=== PATIENT | male | born 1960 | race Caucasian/White ===

== ENCOUNTER 2023-09-11 17:31 | Inpatient (IN) | payer OTHER, MEDICAID ==
[~2023-09-11] VITALS: Ht 162.6 cm; Wt 65.8 kg
[2023-09-11 17:35] VITALS: PULSE 84; RESP 23
[2023-09-11] MEDS ORDERED: NOREPINEPHRINE 8MG/250ML PMX 250 ML IV STA (17:57)
[2023-09-11] MEDS ORDERED: VANCOMYCIN 1G PREMIX 200 ML IV ONE (18:00)
[2023-09-11] MEDS ORDERED: SODIUM CHLORIDE 0.9% 1000ML BAG (SEPSIS BOLUS) IV ONE ×2 (18:00)
[2023-09-11 18:17] LABS: HEMATOCRIT. 34.7 % (42.0-52.0); HEMOGLOBIN. 11.3 g/dL (14.0-18.0); MEAN CORPUSCULAR HEMOGLOBIN 30.6 pg (28.0-32.0); MEAN CORPUSCULAR HGB CONC 32.7 g/dL (31.0-37.0); MEAN CORPUSCULAR VOLUME 93.6 fL (80.0-94.0); MEAN PLATELET VOLUME 11.6 fl (7.4-10.4); PLATELET 196 x1000/uL (130-400); RED CELL DISTRIBUTION WIDTH 16.3 % (11.6-14.6); WHITE BLOOD COUNT 14.3 x1000/uL (4.5-11.0)
[2023-09-11 18:18] LABS: BG CARBOXYHEMOGLOBIN 0.3 % (0.5-1.5); BG DEOXYHEMOGLOBIN 0.9 % (0.0-5.0); BG HCO3 ACT 24.3 mmol/L (22.0-26.0); BG METHEMOGLOBIN 0.2 % (0.0-1.5); BG OXYGEN SATURATION 99.1 % (92.0-98.5); BG OXYHEMOGLOBIN 98.6 % (94.0-97.0); BG PCO2 33.7 mmHg (35.0-45.0); BG PH 7.475 (7.350-7.450); BG PO2 146.1 mmHg (75.0-100.0); BG SAMPLE SITE RIGHT RADIAL; BG TOTAL HEMOGLOBIN 10.6 g/dL (12.0-18.0); BG VENT MODE VENT - AC
[2023-09-11 18:19] LABS: DIFFERENTIAL COMMENT 1
[2023-09-11 18:41] LABS: CHLORIDE 99 mEq/L (98-107); INDEX HEMOLYSI 4 (1-3); INDEX ICTERIC 1 (1-4); INDEX LIPEMIC 1 (1-3); SODIUM 134 mEq/L (136-145)
[2023-09-11 18:46] LABS: POTASSIUM 5.5 mEq/L (3.5-5.1)
[2023-09-11 18:50] LABS: ALANINE AMINOTRANSFERASE 30 IU/L (13-61); ALBUMIN 2.7 g/dL (3.4-5.0); ASPARTATE AMINOTRANSFERASE 44 IU/L (15-37); BILIRUBIN TOTAL 0.4 mg/dL (0.1-1.0); CARBON DIOXIDE 24 mEq/L (21-32); GLUCOSE 234 mg/dL (70-105); PROTEIN TOTAL 7.3 g/dL (6.0-8.3); TROPONIN I HIGH SENSITIVITY 21 ng/L (<78); UREA NITROGEN BLOOD 41 mg/dL (7-21)
[2023-09-11 19:16] LABS: PLATELET ESTIMATE NORMAL
[2023-09-11] MEDS ORDERED: FUROSEMIDE 100MG/10ML VIAL IV STA (19:48)
[2023-09-11] MEDS ORDERED: ALBUTEROL (0.083%) 2.5MG/3ML NEB HHN ONE (20:00)
[2023-09-11] MEDS ORDERED: DEXTROSE 50% WATER 50ML SYRINGE IV ONE (20:00)
[2023-09-11] MEDS ORDERED: SODIUM BICARBONATE 8.4% 1 MEQ/ML 50ML SYR IV ONE (20:00)
[2023-09-11] MEDS ORDERED: INSULIN REGULAR (HUMULIN R) 300UNITS/3ML VIAL IV ONE (20:00)
[2023-09-11] MEDS ORDERED: SODIUM POLYSTYRENE SULFONATE 15 G/60 ML BOT PO ONE (20:00)
[2023-09-11] MEDS ORDERED: CALCIUM CHLORIDE 1GM/10ML SYR IV ONE (20:00)
[2023-09-11 20:31] LABS: INR 1.1; PROTHROMBIN TIME 11.7 sec (9.6-11.0)
[2023-09-11 20:37] LABS: TROPONIN I HIGH SENSITIVITY 60 ng/L (<78)
[2023-09-11 20:39] LABS: LACTIC ACID 4.8 mmol/L (0.4-2.0)
[2023-09-11 20:47] VITALS: PULSE 87; RESP 20
[2023-09-11] MEDS ORDERED: FUROSEMIDE 40MG/4ML VIAL IV NR (21:45)
[2023-09-11 22:14] LABS: TROPONIN I HIGH SENSITIVITY 60 ng/L (<78)
[2023-09-11 22:22] VITALS: RESP 22
[2023-09-11] MEDS ORDERED: DEXT 5%/0.9% NACL 1,000 ML IV ONE (22:30)
[2023-09-11] MEDS ORDERED: ENOXAPARIN 40MG/0.4ML SYR SUBCUT SCH (22:30)
[2023-09-11] MEDS ORDERED: ALBUTEROL (0.5%) 2.5MG/0.5ML NEB HHN ONE (23:49)
[2023-09-12] VITALS (53 sets, daily range): BP systolic 89–156; BP diastolic 52–121; PULSE 78–105; RESP 13–25; TEMP 97.8–100.2
[2023-09-12] MEDS ORDERED: DEXTROSE 50% WATER 50ML SYRINGE IV PRN (00:15)
[2023-09-12 01:58] LABS: CLARITY URINE CLOUDY (CLEAR); COLOR URINE YELLOW (YELLOW); GLUCOSE URINE NEGATIVE (NEGATIVE); KETONES URINE NEGATIVE (NEGATIVE); LEUKOCYTE ESTERASE URINE NEGATIVE (NEGATIVE); NITRITE URINE NEGATIVE (NEGATIVE); OCCULT BLOOD URINE 1+ (NEGATIVE); PH URINE 6.5 (4.5-8.0); PROTEIN URINE TRACE (NEGATIVE); SPECIFIC GRAVITY URINE 1.007 (1.005-1.030); UROBILINOGEN URINE 0.2 E.U./dL (0.2-1.0)
[2023-09-12 02:00] LABS: BACTERIA URINE NONE SEEN
[2023-09-12 05:33] LABS: SQUAMOUS EPITHELIAL CELL URINE FEW /lpf (RARE/1+)
[2023-09-12 05:37] LABS: YEAST URINE 1+
[2023-09-12] MEDS ORDERED: VANCOMYCIN 750MG PREMIX 150 ML IV SCH (06:00)
[2023-09-12] MEDS ORDERED: PIPERACILLIN/TAZOBACTAM 3.375 G in DEXTROSE 5% WATER 50 ML IV SCH (06:00)
[2023-09-12] MEDS: BLOOD SUGAR DIAGNOSTIC STRIP TEST SCH ×3 (09:00→17:34)
[2023-09-12 09:15] LABS: BG BASE EXCESS 3.7 mmol/L (-2.0-2.0); BG CARBOXYHEMOGLOBIN 0.3 % (0.5-1.5); BG DEOXYHEMOGLOBIN 1.5 % (0.0-5.0); BG FRACTION INSPIRED OXYGEN 60; BG HCO3 ACT 26.1 mmol/L (22.0-26.0); BG METHEMOGLOBIN 0.2 % (0.0-1.5); BG OXYGEN SATURATION 98.5 % (92.0-98.5); BG PCO2 32.3 mmHg (35.0-45.0); BG PH 7.525 (7.350-7.450); BG PO2 105.8 mmHg (75.0-100.0); BG SAMPLE SITE RIGHT RADIAL; BG VENT MODE VENT - AC
[2023-09-12] MEDS: PIPERACILLIN/TAZOBACTAM 3.375 G in DEXTROSE 5% WATER 50 ML IV SCH ×3 (10:12→22:23)
[2023-09-12] MEDS: VANCOMYCIN 750MG PREMIX 150 ML IV SCH ×2 (10:12→21:09)
[2023-09-12] MEDS: INSULIN LISPRO 100 UNITS/ML SUBCUT SCH ×3 (10:15→17:45)
[2023-09-12] MEDS: PANTOPRAZOLE SODIUM 40 MG/VIAL IV SCH (10:20)
[2023-09-12] MEDS: LOSARTAN 50 MG TABLET PO SCH (10:20)
[2023-09-12] MEDS: INSULIN GLARGINE 100 UNITS/ML SUBCUT SCH (10:22)
[2023-09-12] MEDS: EMTRICITABINE 200MG CAPSULE PO SCH (11:11)
[2023-09-12] MEDS: TENOFOVIR 300MG TABLET PO SCH (11:11)
[2023-09-12 12:40] LABS: BASOPHILS % 0.3 % (0.0-2.0); EOSINOPHILS % 0.5 % (0.0-5.0); HEMATOCRIT. 32.6 % (42.0-52.0); HEMOGLOBIN. 10.7 g/dL (14.0-18.0); LYMPHOCYTES % 11.5 % (20.0-50.0); MEAN CORPUSCULAR HEMOGLOBIN 30.1 pg (28.0-32.0); MEAN CORPUSCULAR HGB CONC 32.9 g/dL (31.0-37.0); MEAN CORPUSCULAR VOLUME 91.6 fL (80.0-94.0); MEAN PLATELET VOLUME 11.1 fl (7.4-10.4); MONOCYTES % 6.8 % (2.0-8.0); NEUTROPHILS % 80.9 % (40.0-76.0); PLATELET 182 x1000/uL (130-400); RED BLOOD CELL COUNT 3.56 mill/uL (4.7-6.1); RED CELL DISTRIBUTION WIDTH 16.4 % (11.6-14.6); WHITE BLOOD COUNT 12.1 x1000/uL (4.5-11.0)
[2023-09-12 13:07] LABS: CHLORIDE 103 mEq/L (98-107); INDEX HEMOLYSI 1 (1-3); INDEX ICTERIC 1 (1-4); INDEX LIPEMIC 1 (1-3); POTASSIUM 2.9 mEq/L (3.5-5.1); SODIUM 137 mEq/L (136-145)
[2023-09-12 13:18] LABS: CALCIUM 9.6 mg/dL (8.5-10.1); CARBON DIOXIDE 27 mEq/L (21-32); CREATININE 0.9 mg/dL (0.6-1.3); GLUCOSE 147 mg/dL (70-105); PHOSPHORUS 1.4 mg/dL (2.5-4.9); UREA NITROGEN BLOOD 34 mg/dL (7-21)
[2023-09-12] MEDS: IPRATROPIUM/ALBUTEROL 0.5-3(2.5)MG/3ML NEB HHN SCH ×2 (15:59→21:15)
[2023-09-12] MEDS ORDERED: DIATR MEGLU/DIATRIZOATE SOLN 30ML ONE (16:16)
[2023-09-12] MEDS: POTASSIUM-SODIUM PHOSPHATE POWDER PACKET PO SCH (17:14)
[2023-09-12] MEDS: RIVAROXABAN 10 MG TABLET PO SCH (17:14)
[2023-09-12] MEDS ORDERED: POTASSIUM CHLORIDE INJ 40 MEQ in DEXT 5% WATER 500 ML IV NR (17:30)
[2023-09-13] VITALS (92 sets, daily range): BP systolic 97–201; BP diastolic 51–136; PULSE 81–152; RESP 14–32; TEMP 97.8–98.6
[2023-09-13] MEDS: BLOOD SUGAR DIAGNOSTIC STRIP TEST SCH ×4 (00:20→17:41)
[2023-09-13] MEDS: IPRATROPIUM/ALBUTEROL 0.5-3(2.5)MG/3ML NEB HHN SCH ×4 (01:44→20:07)
[2023-09-13 05:54] LABS: CHLORIDE 103 mEq/L (98-107); INDEX HEMOLYSI 1 (1-3); INDEX ICTERIC 1 (1-4); INDEX LIPEMIC 1 (1-3); POTASSIUM 3.4 mEq/L (3.5-5.1); SODIUM 137 mEq/L (136-145)
[2023-09-13 05:56] LABS: CALCIUM 9.5 mg/dL (8.5-10.1)
[2023-09-13] MEDS: INSULIN LISPRO 100 UNITS/ML SUBCUT SCH ×4 (06:00→17:41)
[2023-09-13 06:01] LABS: CARBON DIOXIDE 28 mEq/L (21-32); CREATININE 0.8 mg/dL (0.6-1.3); GLUCOSE 124 mg/dL (70-105); UREA NITROGEN BLOOD 29 mg/dL (7-21)
[2023-09-13 06:02] LABS: BASOPHILS % 0.1 % (0.0-2.0); EOSINOPHILS % 0.1 % (0.0-5.0); HEMATOCRIT. 33.7 % (42.0-52.0); HEMOGLOBIN. 11.1 g/dL (14.0-18.0); MEAN CORPUSCULAR HGB CONC 32.9 g/dL (31.0-37.0); MEAN CORPUSCULAR VOLUME 91.2 fL (80.0-94.0); MEAN PLATELET VOLUME 10.8 fl (7.4-10.4); MONOCYTES % 6.1 % (2.0-8.0); NEUTROPHILS % 85.7 % (40.0-76.0); PLATELET 196 x1000/uL (130-400); RED CELL DISTRIBUTION WIDTH 16.3 % (11.6-14.6); WHITE BLOOD COUNT 21.4 x1000/uL (4.5-11.0)
[2023-09-13] MEDS: PIPERACILLIN/TAZOBACTAM 3.375 G in DEXTROSE 5% WATER 50 ML IV SCH ×3 (06:09→21:37)
[2023-09-13] MEDS ORDERED: HYDRALAZINE 20MG/ML VIAL IV NR (07:18)
[2023-09-13] MEDS ORDERED: HYDRALAZINE 10 MG in SODIUM CHLORIDE 0.9% 49.5 ML IV PRN (07:30)
[2023-09-13] MEDS ORDERED: LABETALOL 5MG/ML SYR 20 MG/4 ML SYRINGE IV SCH (07:45)
[2023-09-13] MEDS ORDERED: MORPHINE SULFATE 2 MG/ML CPJ (NOT FOR IM USE) IV PRN (07:45)
[2023-09-13] MEDS ORDERED: POTASSIUM CHLORIDE 20MEQ TABLET SR PO NR (08:00)
[2023-09-13] MEDS ORDERED: LIDOCAINE HCL 1% 10 MG/ML 10ML VIAL ONE (09:00)
[2023-09-13] MEDS: POTASSIUM-SODIUM PHOSPHATE POWDER PACKET PO SCH ×2 (09:01→17:41)
[2023-09-13] MEDS: TENOFOVIR 300MG TABLET PO SCH (09:01)
[2023-09-13] MEDS: EMTRICITABINE 200MG CAPSULE PO SCH (09:01)
[2023-09-13] MEDS: LOSARTAN 50 MG TABLET PO SCH (09:01)
[2023-09-13] MEDS: INSULIN GLARGINE 100 UNITS/ML SUBCUT SCH (09:02)
[2023-09-13 10:00] LABS: CHLORIDE 105 mEq/L (98-107); INDEX HEMOLYSI 1 (1-3); INDEX ICTERIC 1 (1-4); INDEX LIPEMIC 1 (1-3); POTASSIUM 3.5 mEq/L (3.5-5.1); SODIUM 138 mEq/L (136-145)
[2023-09-13] MEDS ORDERED: DILTIAZEM HCL 125 MG in DEXT 5% WATER 100 ML IV PRN (10:00)
[2023-09-13 10:04] LABS: CARBON DIOXIDE 27 mEq/L (21-32); CREATININE 0.9 mg/dL (0.6-1.3); GLUCOSE 127 mg/dL (70-105); PHOSPHORUS 1.8 mg/dL (2.5-4.9); UREA NITROGEN BLOOD 28 mg/dL (7-21)
[2023-09-13 10:09] LABS: TROPONIN I HIGH SENSITIVITY 37 ng/L (<78)
[2023-09-13] MEDS ORDERED: DILTIAZEM HCL 125 MG in DEXT 5% WATER 100 ML IV SCH (10:15)
[2023-09-13] MEDS ORDERED: POTASSIUM-SODIUM PHOSPHATE POWDER PACKET PO ONE (10:15)
[2023-09-13] MEDS: PANTOPRAZOLE SODIUM 40 MG/VIAL IV SCH (12:15)
[2023-09-13] MEDS ORDERED: HYDRALAZINE 20MG/ML VIAL IV PRN (16:23)
[2023-09-13] MEDS: AMLODIPINE 10MG TABLET NG SCH (17:00)
[2023-09-13] MEDS: RIVAROXABAN 10 MG TABLET PO SCH (17:41)
[2023-09-13] MEDS: ZINC SULFATE 220 MG ( 50 ) CAPSULE PO SCH (17:41)
[2023-09-14] VITALS (48 sets, daily range): BP systolic 91–125; BP diastolic 53–82; PULSE 10–118; RESP 14–21; TEMP 98.1–100
[2023-09-14] MEDS ORDERED: VANCOMYCIN 750MG PREMIX 150 ML IV SCH
[2023-09-14] MEDS: BLOOD SUGAR DIAGNOSTIC STRIP TEST SCH ×5 (00:02→23:46)
[2023-09-14] MEDS: IPRATROPIUM/ALBUTEROL 0.5-3(2.5)MG/3ML NEB HHN SCH ×4 (02:51→20:44)
[2023-09-14] MEDS: INSULIN LISPRO 100 UNITS/ML SUBCUT SCH ×5 (05:42→23:53)
[2023-09-14] MEDS: PIPERACILLIN/TAZOBACTAM 3.375 G in DEXTROSE 5% WATER 50 ML IV SCH ×3 (05:43→20:45)
[2023-09-14 06:02] LABS: BASOPHILS % 0.2 % (0.0-2.0); HEMATOCRIT. 28.8 % (42.0-52.0); HEMOGLOBIN. 9.6 g/dL (14.0-18.0); LYMPHOCYTES % 7.5 % (20.0-50.0); MEAN CORPUSCULAR HEMOGLOBIN 30.3 pg (28.0-32.0); MEAN CORPUSCULAR HGB CONC 33.2 g/dL (31.0-37.0); MEAN CORPUSCULAR VOLUME 91.3 fL (80.0-94.0); MEAN PLATELET VOLUME 10.2 fl (7.4-10.4); MONOCYTES % 5.3 % (2.0-8.0); PLATELET 173 x1000/uL (130-400); RED BLOOD CELL COUNT 3.16 mill/uL (4.7-6.1); RED CELL DISTRIBUTION WIDTH 16.4 % (11.6-14.6); WHITE BLOOD COUNT 18.2 x1000/uL (4.5-11.0)
[2023-09-14 07:43] LABS: CHLORIDE 107 mEq/L (98-107); INDEX HEMOLYSI 1 (1-3); INDEX ICTERIC 1 (1-4); INDEX LIPEMIC 1 (1-3); POTASSIUM 3.7 mEq/L (3.5-5.1); SODIUM 139 mEq/L (136-145)
[2023-09-14 07:49] LABS: CALCIUM 8.8 mg/dL (8.5-10.1); CARBON DIOXIDE 26 mEq/L (21-32); CREATININE 1.2 mg/dL (0.6-1.3); GLUCOSE 154 mg/dL (70-105); PHOSPHORUS 1.9 mg/dL (2.5-4.9); UREA NITROGEN BLOOD 36 mg/dL (7-21)
[2023-09-14] MEDS: TENOFOVIR 300MG TABLET PO SCH (09:00)
[2023-09-14] MEDS: EMTRICITABINE 200MG CAPSULE PO SCH (09:00)
[2023-09-14] MEDS: LOSARTAN 50 MG TABLET PO SCH (09:00)
[2023-09-14] MEDS: AMLODIPINE 10MG TABLET NG SCH (09:00)
[2023-09-14] MEDS: POTASSIUM-SODIUM PHOSPHATE POWDER PACKET PO SCH ×2 (09:00→17:21)
[2023-09-14] MEDS: PANTOPRAZOLE SODIUM 40 MG/VIAL IV SCH (09:00)
[2023-09-14] MEDS: ZINC SULFATE 220 MG ( 50 ) CAPSULE PO SCH (09:00)
[2023-09-14] MEDS: INSULIN GLARGINE 100 UNITS/ML SUBCUT SCH (09:40)
[2023-09-14] MEDS ORDERED: SODIUM PHOS,M-BASIC-D-BASIC 10 MM in DEXT 5% WATER 246.6667 ML IV NR (11:00)
[2023-09-14] MEDS: RIVAROXABAN 10 MG TABLET PO SCH (17:33)
[2023-09-15] VITALS (23 sets, daily range): BP systolic 103–142; BP diastolic 61–93; PULSE 89–120; RESP 13–25; TEMP 98.4–99.9; O2SAT 100
[2023-09-15] MEDS ORDERED: VANCOMYCIN 500MG PREMIX 100 ML IV SCH
[2023-09-15] MEDS: IPRATROPIUM/ALBUTEROL 0.5-3(2.5)MG/3ML NEB HHN SCH ×4 (00:44→21:05)
[2023-09-15] MEDS: ACETYLCYSTEINE 100MG/ML 10% VIAL 4ML INH SCH ×3 (00:45→16:40)
[2023-09-15] MEDS: PIPERACILLIN/TAZOBACTAM 3.375 G in DEXTROSE 5% WATER 50 ML IV SCH ×2 (04:44→17:21)
[2023-09-15] MEDS: BLOOD SUGAR DIAGNOSTIC STRIP TEST SCH ×3 (05:48→17:22)
[2023-09-15] MEDS: INSULIN LISPRO 100 UNITS/ML SUBCUT SCH ×3 (05:49→17:34)
[2023-09-15 06:05] LABS: POTASSIUM 3.9 mEq/L (3.5-5.1)
[2023-09-15 06:19] LABS: CALCIUM 9.6 mg/dL (8.5-10.1)
[2023-09-15] MEDS: TENOFOVIR 300MG TABLET PO SCH (08:47)
[2023-09-15] MEDS: EMTRICITABINE 200MG CAPSULE PO SCH (08:47)
[2023-09-15] MEDS: LOSARTAN 50 MG TABLET PO SCH (08:47)
[2023-09-15] MEDS: PANTOPRAZOLE SODIUM 40 MG/VIAL IV SCH (08:47)
[2023-09-15] MEDS: POTASSIUM-SODIUM PHOSPHATE POWDER PACKET PO SCH ×2 (08:47→17:20)
[2023-09-15] MEDS: AMLODIPINE 10MG TABLET NG SCH (08:48)
[2023-09-15] MEDS: ZINC SULFATE 220 MG ( 50 ) CAPSULE PO SCH (08:48)
[2023-09-15 09:07] LABS: ABSOLUTE LYMPHOCYTES 1.5 x10E3/uL (0.7-3.1); ABSOLUTE MONOCYTES 0.9 x10E3/uL (0.1-0.9); ABSOLUTE NEUTROPHILS 16.3 x10E3/uL (1.4-7.0); BASOPHILS 0 % (Not Estab.); EOSINOPHILS 0 % (Not Estab.); HEMATOCRIT 29.7 % (37.5-51.0); HEMOGLOBIN 9.7 g/dL (13.0-17.7); IMMATURE GRANULOCYTES 1 % (Not Estab.); IMMATURE GRANULOCYTES ABSOLUTE 0.2 x10E3/uL (0.0-0.1); LYMPHOCYTES 8 % (Not Estab.); MEAN CORPUSCULAR HGB CONC. 32.7 g/dL (31.5-35.7); MEAN CORPUSCULAR VOLUME 92 fL (79-97); MONOCYTES 5 % (Not Estab.); NEUTROPHILS 86 % (Not Estab.); PLATELETS 198 x10E3/uL (150-450); RBC 3.23 x10E6/uL (4.14-5.80); RED CELL DISTRIBUTION WIDTH 14.6 % (11.6-15.4); WBC 18.9 x10E3/uL (3.4-10.8)
[2023-09-15] MEDS: INSULIN GLARGINE 100 UNITS/ML SUBCUT SCH (09:49)
[2023-09-15 17:09] LABS: % CD 3 POS. LYMPHOCYTES 80.1 % (57.5-86.2); % CD 4 POS. LYMPHOCYTES 24.8 % (30.8-58.5); % CD 8 POS. LYMPH 57.3 % (12.0-35.5); ABSOLUTE CD 3 1202 /uL (622-2402); ABSOLUTE CD 4 HELPER 372 /uL (359-1519); ABSOLUTE CD 8 SUPPRESSOR 860 /uL (109-897); CD4/CD8 RATIO 0.43 (0.92-3.72)
[2023-09-15] MEDS: RIVAROXABAN 10 MG TABLET PO SCH (17:20)
[2023-09-15] MEDS ORDERED: MEROPENEM 1000MG in NORMAL SALINE 100ML IV SCH (18:00)
== END 2023-09-16 00:05 | disposition short-term general hospital (02) | DRG 974 ==
LOC: ER 17:31 → MICUSO 19:42 → CVICU 09-12 10:09 → 5EST 09-14 08:25
PROVIDERS: ADMIT Internal Medicine; ATTEND Internal Medicine
PROC: 02HV33Z Insertion of Infusion Device into Superior Vena Cava, Percutaneous Approach (ICD-10-PCS; principal; 2023-09-13)
PROC: B548ZZA Ultrasonography of Superior Vena Cava, Guidance (ICD-10-PCS; 2023-09-13)
PROC: 5A1955Z Respiratory Ventilation, Greater than 96 Consecutive Hours (ICD-10-PCS; 2023-09-13)
DX: A41.9 Sepsis, unspecified organism (principal); E43 Unspecified severe protein-calorie malnutrition; B20 Human immunodeficiency virus [HIV] disease; J96.21 Acute and chronic respiratory failure with hypoxia; I46.9 Cardiac arrest, cause unspecified; G92.8 Other toxic encephalopathy; R53.2 Functional quadriplegia; J18.9 Pneumonia, unspecified organism; N17.0 Acute kidney failure with tubular necrosis; Z99.11 Dependence on respirator [ventilator] status; Z43.1 Encounter for attention to gastrostomy; E11.65 Type 2 diabetes mellitus with hyperglycemia; E87.5 Hyperkalemia; I11.9 Hypertensive heart disease without heart failure; L89.90 Pressure ulcer of unspecified site, unspecified stage; I07.1 Rheumatic tricuspid insufficiency; R13.10 Dysphagia, unspecified; B96.1 Klebsiella pneumoniae [K. pneumoniae] as the cause of diseases classified elsewhere; I48.91 Unspecified atrial fibrillation; Z79.899 Other long term (current) drug therapy; Z68.29 Body mass index [BMI] 29.0-29.9, adult; Z74.01 Bed confinement status; Z79.01 Long term (current) use of anticoagulants; Z79.4 Long term (current) use of insulin
CPT/HCPCS: 36415; 36573; 36600; 71045; 71250; 74018; 76770; 80048; 80053; 80202; 81003; 82375; 82805; 82962; 83036; 83605; 83735; 83880; 84100; 84145; 84484; 85025; 85379; 86359; 86360; 87070; 87077; 87186; 93005; 93306; 93970; 94002; 94003; 94640; 99291; A6261; C1725; C9113; J0360; J1650; J1815; J1940; J2185; J2270; J2543; J3370; J3480; J3490; J7030; J7060; J7608; Q9963

== ENCOUNTER 2024-02-21 16:52 | Inpatient (IN) | payer MEDICARE, OTHER, MEDICAID ==
[~2024-02-21] VITALS: Ht 172.7 cm; Wt 692.2 kg
[2024-02-21 17:10] VITALS: PULSE 131; RESP 23
[2024-02-21] MEDS ORDERED: SODIUM CHLORIDE 0.9% 1000ML BAG (SEPSIS BOLUS) IV ONE (17:30)
[2024-02-21] MEDS: PIPERACILLIN/TAZO 3.375G/50ML 50 ML IV NR (18:16)
[2024-02-21] MEDS: VANCOMYCIN 1G PREMIX 200 ML IV NR (18:17)
[2024-02-21 18:25] LABS: BASOPHILS % 0.3 % (0.0-2.0); EOSINOPHILS % 0.7 % (0.0-5.0); HEMATOCRIT. 39.8 % (42.0-52.0); HEMOGLOBIN. 12.9 g/dL (14.0-18.0); LYMPHOCYTES % 8.1 % (20.0-50.0); MEAN CORPUSCULAR HEMOGLOBIN 31.8 pg (28.0-32.0); MEAN CORPUSCULAR HGB CONC 32.5 g/dL (31.0-37.0); MEAN CORPUSCULAR VOLUME 97.7 fL (80.0-94.0); MEAN PLATELET VOLUME 10.1 fl (7.4-10.4); MONOCYTES % 11.7 % (2.0-8.0); NEUTROPHILS % 79.2 % (40.0-76.0); PLATELET 311 x1000/uL (130-400); RED BLOOD CELL COUNT 4.07 mill/uL (4.7-6.1); RED CELL DISTRIBUTION WIDTH 16.8 % (11.6-14.6); WHITE BLOOD COUNT 20.4 x1000/uL (4.5-11.0)
[2024-02-21 18:38] LABS: ALANINE AMINOTRANSFERASE 14 IU/L (10-49); ALBUMIN 3.9 g/dL (3.2-4.8); ASPARTATE AMINOTRANSFERASE 37 IU/L (<34); BILIRUBIN TOTAL 0.3 mg/dL (0.1-1.0); CALCIUM 9.6 mg/dL (8.7-10.4); CARBON DIOXIDE 24 mEq/L (21-32); CHLORIDE 97 mEq/L (98-107); CREATININE 1.5 mg/dL (0.6-1.3); GLUCOSE 237 mg/dL (70-105); PROTEIN TOTAL 8.5 g/dL (6.0-8.3); SODIUM 125 mEq/L (136-145); TROPONIN I HIGH SENSITIVITY 34 ng/L (3.0-53); UREA NITROGEN BLOOD 60 mg/dL (9-23)
[2024-02-21 18:50] LABS: POTASSIUM 7.1 mEq/L (3.5-5.1)
[2024-02-21] MEDS: FUROSEMIDE 40MG/4ML VIAL IV NR (18:55)
[2024-02-21] MEDS: CALCIUM CHLORIDE 1GM/10ML SYR IV NR (19:22)
[2024-02-21] MEDS: DEXTROSE 50% WATER 50ML SYRINGE IV NR (19:22)
[2024-02-21] MEDS: SODIUM BICARBONATE 8.4% 1 MEQ/ML 50ML SYR IV NR (19:23)
[2024-02-21] MEDS: SODIUM CHLORIDE 0.9% 2,100 ML IV SCH (19:23)
[2024-02-21] MEDS: INSULIN REGULAR (HUMULIN R) 300UNITS/3ML VIAL IV NR (19:38)
[2024-02-21] MEDS: LEVOFLOXACIN 750MG PREMIX 150 ML IV ONE (19:39)
[2024-02-21] MEDS: ALBUTEROL (0.083%) 2.5MG/3ML NEB HHN NR (20:46)
[2024-02-21 20:47] VITALS: PULSE 83; RESP 15
[2024-02-21 21:09] LABS: INR 1.1; PROTHROMBIN TIME 11.9 sec (9.6-11.0)
[2024-02-21 21:14] LABS: TROPONIN I HIGH SENSITIVITY 51 ng/L (3.0-53)
[2024-02-21] MEDS ORDERED: DOCUSATE SODIUM 100MG CAPSULE PO PRN (22:15)
[2024-02-21] MEDS ORDERED: ONDANSETRON HCL 4MG/2ML INJ IV PRN (22:15)
[2024-02-21] MEDS ORDERED: IPRATROPIUM/ALBUTEROL 0.5-3(2.5)MG/3ML NEB HHN PRN (22:15)
[2024-02-21] MEDS: BLOOD SUGAR DIAGNOSTIC STRIP TEST SCH (23:00)
[2024-02-21] MEDS: SODIUM CHLORIDE 0.9% 1,000 ML IV SCH (23:01)
[2024-02-22] VITALS (13 sets, daily range): BP systolic 86–139; BP diastolic 63–87; PULSE 88–106; RESP 12–24; TEMP 97–97.9
[2024-02-22] MEDS: IPRATROPIUM/ALBUTEROL 0.5-3(2.5)MG/3ML NEB HHN SCH (00:35)
[2024-02-22] MEDS ORDERED: APIX5TAB PO (00:39)
[2024-02-22] MEDS ORDERED: DARU1TAB PO (00:39)
[2024-02-22] MEDS ORDERED: GLYC1SOL (00:39)
[2024-02-22 02:45] LABS: BG BASE EXCESS -4.8 mmol/L (-2.0-2.0); BG CARBOXYHEMOGLOBIN 0.9 % (0.5-1.5); BG DEOXYHEMOGLOBIN 0.5 % (0.0-5.0); BG FRACTION INSPIRED OXYGEN 40; BG METHEMOGLOBIN 0.3 % (0.0-1.5); BG OXYGEN SATURATION 99.5 % (92.0-98.5); BG OXYHEMOGLOBIN 98.3 % (94.0-97.0); BG PCO2 47.9 mmHg (35.0-45.0); BG PO2 143.3 mmHg (75.0-100.0); BG SAMPLE SITE RIGHT RADIAL; BG TOTAL HEMOGLOBIN 11.7 g/dL (12.0-18.0); BG VENT MODE VENT - AC
[2024-02-22 02:51] LABS: POTASSIUM 5.5 mEq/L (3.5-5.1)
[2024-02-22 05:54] LABS: BASOPHILS % 0.4 % (0.0-2.0); EOSINOPHILS % 0.7 % (0.0-5.0); HEMATOCRIT. 35.3 % (42.0-52.0); HEMOGLOBIN. 11.7 g/dL (14.0-18.0); MEAN CORPUSCULAR VOLUME 97.1 fL (80.0-94.0); MEAN PLATELET VOLUME 9.7 fl (7.4-10.4); MONOCYTES % 11.3 % (2.0-8.0); NEUTROPHILS % 71.6 % (40.0-76.0); PLATELET 194 x1000/uL (130-400); RED BLOOD CELL COUNT 3.64 mill/uL (4.7-6.1); WHITE BLOOD COUNT 7.8 x1000/uL (4.5-11.0)
[2024-02-22 06:17] LABS: ALANINE AMINOTRANSFERASE 10 IU/L (10-49); ALBUMIN 3.3 g/dL (3.2-4.8); ASPARTATE AMINOTRANSFERASE 11 IU/L (<34); BILIRUBIN TOTAL 0.3 mg/dL (0.1-1.0); CALCIUM 9.5 mg/dL (8.7-10.4); CARBON DIOXIDE 24 mEq/L (21-32); CHLORIDE 103 mEq/L (98-107); CHOLESTEROL 93 mg/dL (<200); CREATININE 1.2 mg/dL (0.6-1.3); GLUCOSE 96 mg/dL (70-105); HDL CHOLESTEROL 43 mg/dL (>55); IRON 18 ug/dL (65-175); LDL CHOLESTEROL 34 mg/dL (5-100); PHOSPHORUS 2.3 mg/dL (2.5-4.9); POTASSIUM 5.3 mEq/L (3.5-5.1); PROTEIN TOTAL 7.6 g/dL (6.0-8.3); SODIUM 133 mEq/L (136-145); T4 FREE 1.06 ng/dL (0.89-1.76); THYROID STIMULATING HORMONE 1.03 uIU/mL (0.55-4.78); TOTAL IRON BINDING CAPACITY 265 ug/dl (250-425); TRIGLYCERIDE 36 mg/dL (0-150); UREA NITROGEN BLOOD 61 mg/dL (9-23)
[2024-02-22 07:18] LABS: FERRITIN 428 ng/mL (22-322); FOLIC ACID (FOLATE) SERUM > 20.00 ng/mL (>5.38); VITAMIN B12 SERUM 1696 pg/mL (211-911)
[2024-02-22] MEDS: INSULIN LISPRO 100 UNITS/ML SUBCUT SCH (08:20)
[2024-02-22] MEDS ORDERED: SODIUM POLYSTYRENE SULFONATE 15 G/60 ML BOT PO NR (08:30)
[2024-02-22] MEDS ORDERED: VANCOMYCIN 1GM/200ML PMX (BAXTER) IV SCH ×2 (09:00→13:00)
[2024-02-22] MEDS: BUDESONIDE 0.5MG/2ML NEB HHN SCH (09:00)
[2024-02-22] MEDS: DEXTROSE 50% WATER 50ML SYRINGE IV PRN (09:05)
[2024-02-22 09:56] LABS: PHOSPHORUS 2.6 mg/dL (2.5-4.9)
[2024-02-22] MEDS ORDERED: DEXT IV SCH (10:50)
[2024-02-22] MEDS ORDERED: NACL IV SCH (10:50)
[2024-02-22] MEDS ORDERED: SODIUM CHLORIDE IV SCH (10:50)
[2024-02-22 13:30] LABS: CALCIUM 9.5 mg/dL (8.7-10.4); CARBON DIOXIDE 21 mEq/L (21-32); CHLORIDE 105 mEq/L (98-107); CREATININE 1.1 mg/dL (0.6-1.3); GLUCOSE 106 mg/dL (70-105); POTASSIUM 5.7 mEq/L (3.5-5.1); SODIUM 131 mEq/L (136-145); UREA NITROGEN BLOOD 42 mg/dL (9-23)
[2024-02-22] MEDS ORDERED: MEROPENEM 1G/100ML 100 ML IV SCH (14:00)
[2024-02-22] MEDS ORDERED: VANCOMYCIN 750MG/150ML IV SCH (14:00)
[2024-02-22] MEDS: ACETAMINOPHEN 650MG/20.3ML UDC GT PRN (15:26)
[2024-02-22] MEDS: APIXABAN 5 MG TABLET PO SCH (15:27)
[2024-02-22 16:53] LABS: CALCIUM 9.5 mg/dL (8.7-10.4); CARBON DIOXIDE 21 mEq/L (21-32); CHLORIDE 105 mEq/L (98-107); CREATININE 1.1 mg/dL (0.6-1.3); GLUCOSE 90 mg/dL (70-105); POTASSIUM 5.1 mEq/L (3.5-5.1); SODIUM 134 mEq/L (136-145); UREA NITROGEN BLOOD 48 mg/dL (9-23)
[2024-02-22 20:45] LABS: CALCIUM 9.4 mg/dL (8.7-10.4); CARBON DIOXIDE 21 mEq/L (21-32); CHLORIDE 105 mEq/L (98-107); CREATININE 1.1 mg/dL (0.6-1.3); GLUCOSE 111 mg/dL (70-105); SODIUM 132 mEq/L (136-145); UREA NITROGEN BLOOD 47 mg/dL (9-23)
[2024-02-22 21:24] LABS: HEPATITIS B SURFACE ANTIGEN NEGATIVE (Negative); HEPATITIS C AB NON REACTIVE (Neg) (Negative)
[2024-02-22] MEDS: MEROPENEM 1G/100ML 100 ML IV SCH (22:00)
[2024-02-23] VITALS (23 sets, daily range): BP systolic 98–136; BP diastolic 65–87; PULSE 89–104; RESP 12–13; TEMP 97–98.7
[2024-02-23] MEDS: DEXT 5%/0.9% NACL 1,000 ML IV SCH (00:01)
[2024-02-23 00:47] LABS: CLARITY URINE CLEAR (CLEAR); COLOR URINE YELLOW (YELLOW); GLUCOSE URINE NEGATIVE (NEGATIVE); KETONES URINE NEGATIVE (NEGATIVE); LEUKOCYTE ESTERASE URINE 2+ (NEGATIVE); NITRITE URINE POSITIVE (NEGATIVE); OCCULT BLOOD URINE NEGATIVE (NEGATIVE); PROTEIN URINE TRACE (NEGATIVE); SPECIFIC GRAVITY URINE 1.013 (1.005-1.030); UROBILINOGEN URINE 0.2 E.U./dL (0.2-1.0)
[2024-02-23 01:40] LABS: CREATININE URINE RANDOM 24.1 mg/dL
[2024-02-23 02:20] LABS: SQUAMOUS EPITHELIAL CELL URINE NONE SEEN /lpf (RARE/1+)
[2024-02-23 02:31] LABS: RBC URINE 0-2 /hpf (0-2); WBC URINE 0-2 /hpf (0-2)
[2024-02-23 02:32] LABS: BACTERIA URINE 1+; TRIPLE PHOSPHATE CRYSTAL URINE 1+ /lpf; YEAST URINE 1+
[2024-02-23] MEDS: DOXYCYCLINE 100MG/100ML 100 ML IV SCH (02:46)
[2024-02-23 06:30] LABS: HEMATOCRIT 32.8 % (42.0-52.0); HEMOGLOBIN 10.7 g/dL (14.0-18.0); MEAN CORPUSCULAR HEMOGLOBIN 31.4 pg (28.0-32.0); MEAN CORPUSCULAR HGB CONC 32.6 g/dL (31.0-37.0); MEAN CORPUSCULAR VOLUME 96.2 fL (80.0-94.0); PLATELET 179 x1000/uL (130-400); RED BLOOD CELL COUNT 3.41 mill/uL (4.7-6.1); RED CELL DISTRIBUTION WIDTH 16.7 % (11.6-14.6); WHITE BLOOD COUNT 8.7 x1000/uL (4.5-11.0)
[2024-02-23 07:10] LABS: CALCIUM 9.4 mg/dL (8.7-10.4); CARBON DIOXIDE 22 mEq/L (21-32); CHLORIDE 106 mEq/L (98-107); GLUCOSE 78 mg/dL (70-105); PHOSPHORUS 1.9 mg/dL (2.5-4.9); POTASSIUM 5.1 mEq/L (3.5-5.1); SODIUM 134 mEq/L (136-145); UREA NITROGEN BLOOD 50 mg/dL (9-23)
[2024-02-23] MEDS: PANTOPRAZOLE SODIUM 40 MG/VIAL IV SCH (09:00)
[2024-02-23] MEDS: SODIUM HYPOCHLORITE 0.125% 473ML SOLUTION TOP SCH (16:02)
[2024-02-23] MEDS: SODIUM PHOSPHATE 30 MMOL in DEXT 5% WATER 490 ML IV NR (17:28)
[2024-02-23] MEDS ORDERED: ASCORBIC ACID 500MG/5ML 120ML PO SCH (19:00)
[2024-02-23] MEDS: SODIUM CHLORIDE 0.9% 1,000 ML IV SCH (19:00)
[2024-02-23 19:38] LABS: ALBUMIN 3.3 g/dL (3.2-4.8); PREALBUMIN 16.5 mg/dl (10.0-40.0)
[2024-02-24] VITALS (21 sets, daily range): BP systolic 106–156; BP diastolic 67–83; PULSE 72–104; RESP 10–16; TEMP 97.3–98.3
[2024-02-24] MEDS: ZINC SULFATE 220 MG ( 50 ) CAPSULE PO SCH (00:44)
[2024-02-24 06:11] LABS: HEMATOCRIT 33.8 % (42.0-52.0); HEMOGLOBIN 10.8 g/dL (14.0-18.0); MEAN CORPUSCULAR HEMOGLOBIN 31.1 pg (28.0-32.0); MEAN CORPUSCULAR HGB CONC 31.8 g/dL (31.0-37.0); MEAN CORPUSCULAR VOLUME 97.5 fL (80.0-94.0); PLATELET 182 x1000/uL (130-400); RED BLOOD CELL COUNT 3.46 mill/uL (4.7-6.1); RED CELL DISTRIBUTION WIDTH 17.1 % (11.6-14.6); WHITE BLOOD COUNT 7.2 x1000/uL (4.5-11.0)
[2024-02-24 06:48] LABS: CALCIUM 8.7 mg/dL (8.7-10.4); CARBON DIOXIDE 21 mEq/L (21-32); CHLORIDE 106 mEq/L (98-107); CREATININE 0.8 mg/dL (0.6-1.3); GLUCOSE 110 mg/dL (70-105); PHOSPHORUS 3.6 mg/dL (2.5-4.9); POTASSIUM 4.4 mEq/L (3.5-5.1); SODIUM 136 mEq/L (136-145); UREA NITROGEN BLOOD 38 mg/dL (9-23)
[2024-02-24 06:54] LABS: ABSOLUTE EOSINOPHILS 0.1 x10E3/uL (0.0-0.4); ABSOLUTE LYMPHOCYTES 1.4 x10E3/uL (0.7-3.1); ABSOLUTE MONOCYTES 0.5 x10E3/uL (0.1-0.9); ABSOLUTE NEUTROPHILS 5.9 x10E3/uL (1.4-7.0); BASOPHILS 0 % (Not Estab.); EOSINOPHILS 1 % (Not Estab.); HEMATOCRIT 35.4 % (37.5-51.0); HEMOGLOBIN 11.1 g/dL (13.0-17.7); IMMATURE GRANULOCYTES 0 % (Not Estab.); LYMPHOCYTES 18 % (Not Estab.); MEAN CORPUSCULAR HEMOGLOBIN 30.5 pg (26.6-33.0); MEAN CORPUSCULAR HGB CONC. 31.4 g/dL (31.5-35.7); MEAN CORPUSCULAR VOLUME 97 fL (79-97); MONOCYTES 6 % (Not Estab.); NEUTROPHILS 75 % (Not Estab.); PLATELETS 194 x10E3/uL (150-450); RBC 3.64 x10E6/uL (4.14-5.80); RED CELL DISTRIBUTION WIDTH 13.8 % (11.6-15.4); WBC 7.9 x10E3/uL (3.4-10.8)
[2024-02-24] MEDS: ASCORBIC ACID 500 MG TABLET PO SCH (08:48)
[2024-02-24 09:11] LABS: % CD 3 POS. LYMPHOCYTES 86.3 % (57.5-86.2); % CD 4 POS. LYMPHOCYTES 27.2 % (30.8-58.5); % CD 8 POS. LYMPH 61.9 % (12.0-35.5); ABSOLUTE CD 3 1208 /uL (622-2402); ABSOLUTE CD 4 HELPER 381 /uL (359-1519); ABSOLUTE CD 8 SUPPRESSOR 867 /uL (109-897); CD4/CD8 RATIO 0.44 (0.92-3.72)
[2024-02-24] MEDS ORDERED: VANCOMYCIN 2,000 MG in DEXT 5% WATER 500 ML IV NR (10:00)
[2024-02-24] MEDS: BLOOD SUGAR DIAGNOSTIC STRIP TEST SCH (11:28)
[2024-02-24] MEDS ORDERED: SODIUM CHLORIDE 10% FOR INH 15ML NEB INH NR (16:00)
[2024-02-24] MEDS: SODIUM HYPOCHLORITE 0.125% 473ML SOLUTION TOP SCH (21:45)
[2024-02-25] VITALS (18 sets, daily range): BP systolic 128–157; BP diastolic 74–91; PULSE 80–101; RESP 11–13; TEMP 97.2–98.2
[2024-02-25 07:03] LABS: HEMATOCRIT 29.5 % (42.0-52.0); HEMOGLOBIN 9.6 g/dL (14.0-18.0); MEAN CORPUSCULAR HEMOGLOBIN 30.9 pg (28.0-32.0); MEAN CORPUSCULAR HGB CONC 32.5 g/dL (31.0-37.0); MEAN CORPUSCULAR VOLUME 94.9 fL (80.0-94.0); PLATELET 153 x1000/uL (130-400); RED BLOOD CELL COUNT 3.11 mill/uL (4.7-6.1); RED CELL DISTRIBUTION WIDTH 16.7 % (11.6-14.6); WHITE BLOOD COUNT 6.2 x1000/uL (4.5-11.0)
[2024-02-25 07:36] LABS: CALCIUM 8.7 mg/dL (8.7-10.4); CARBON DIOXIDE 20 mEq/L (21-32); CHLORIDE 102 mEq/L (98-107); CREATININE 0.7 mg/dL (0.6-1.3); GLUCOSE 109 mg/dL (70-105); PHOSPHORUS 1.9 mg/dL (2.5-4.9); POTASSIUM 3.7 mEq/L (3.5-5.1); UREA NITROGEN BLOOD 30 mg/dL (9-23)
[2024-02-25 07:37] LABS: SODIUM 121 mEq/L (136-145)
[2024-02-25] MEDS: POTASSIUM PHOSPHATE 30 MMOL in SODIUM CHLORIDE 0.9% 490 ML IV NR (11:02)
[2024-02-25] MEDS ORDERED: INSU100I28 SQ (14:23)
[2024-02-25] MEDS ORDERED: GLYC2TAB21 PO (14:23)
[2024-02-25] MEDS ORDERED: IPRA3AMP9 HHN (14:24)
[2024-02-26] VITALS (23 sets, daily range): BP systolic 140–157; BP diastolic 75–92; PULSE 72–104; RESP 12–16; TEMP 97.4–98
[2024-02-26 07:44] LABS: CALCIUM 8.1 mg/dL (8.7-10.4); CARBON DIOXIDE 18 mEq/L (21-32); CHLORIDE 112 mEq/L (98-107); CREATININE 0.6 mg/dL (0.6-1.3); GLUCOSE 122 mg/dL (70-105); PHOSPHORUS 2.8 mg/dL (2.5-4.9); POTASSIUM 5.6 mEq/L (3.5-5.1); SODIUM 138 mEq/L (136-145); UREA NITROGEN BLOOD 14 mg/dL (9-23)
[2024-02-26] MEDS: BLOOD SUGAR DIAGNOSTIC STRIP TEST SCH (21:00)
[2024-02-27] VITALS (21 sets, daily range): BP systolic 125–182; BP diastolic 73–103; PULSE 66–85; RESP 12–21; TEMP 97.5–98.1
[2024-02-27] MEDS: CEFTAZIDIME PENTAHYDRATE 2 G in DEXT 5% WATER 100 ML IV SCH (00:10)
[2024-02-27] MEDS: CLONIDINE 0.1MG TABLET PO PRN (01:13)
[2024-02-27 08:08] LABS: BASOPHILS % 0.4 % (0.0-2.0); EOSINOPHILS % 7.5 % (0.0-5.0); HEMATOCRIT. 30.9 % (42.0-52.0); LYMPHOCYTES % 27.7 % (20.0-50.0); MEAN CORPUSCULAR HEMOGLOBIN 30.8 pg (28.0-32.0); MEAN CORPUSCULAR HGB CONC 32.3 g/dL (31.0-37.0); MEAN CORPUSCULAR VOLUME 95.4 fL (80.0-94.0); MEAN PLATELET VOLUME 10.3 fl (7.4-10.4); MONOCYTES % 8.4 % (2.0-8.0); PLATELET 130 x1000/uL (130-400); RED BLOOD CELL COUNT 3.23 mill/uL (4.7-6.1); RED CELL DISTRIBUTION WIDTH 16.5 % (11.6-14.6)
[2024-02-27 08:27] LABS: CALCIUM 8.2 mg/dL (8.7-10.4); CARBON DIOXIDE 20 mEq/L (21-32); CHLORIDE 111 mEq/L (98-107); CREATININE 0.6 mg/dL (0.6-1.3); GLUCOSE 106 mg/dL (70-105); PHOSPHORUS 2.3 mg/dL (2.5-4.9); POTASSIUM 4.7 mEq/L (3.5-5.1); SODIUM 138 mEq/L (136-145); UREA NITROGEN BLOOD 19 mg/dL (9-23)
[2024-02-27 09:43] LABS: SODIUM URINE RANDOM 128 mEq/L
[2024-02-27 10:31] LABS: OSMOLALITY URINE 509 mOsm/kg (500-850)
[2024-02-27] MEDS: AMLODIPINE 5MG TABLET PO SCH (12:43)
[2024-02-27] MEDS: MEROPENEM 1G/100ML 100 ML IV SCH (22:02)
[2024-02-27] MEDS: BLOOD SUGAR DIAGNOSTIC STRIP TEST SCH (23:56)
[2024-02-27] MEDS: INSULIN LISPRO 100 UNITS/ML SUBCUT SCH (23:58)
[2024-02-28] VITALS (21 sets, daily range): BP systolic 112–158; BP diastolic 70–94; PULSE 69–106; RESP 12–18; TEMP 97.4–97.9
[2024-02-28 07:48] LABS: CARBON DIOXIDE 22 mEq/L (21-32); CHLORIDE 107 mEq/L (98-107); CREATININE 0.6 mg/dL (0.6-1.3); GLUCOSE 119 mg/dL (70-105); PHOSPHORUS 1.6 mg/dL (2.5-4.9); POTASSIUM 4.7 mEq/L (3.5-5.1); SODIUM 135 mEq/L (136-145); UREA NITROGEN BLOOD 21 mg/dL (9-23)
[2024-02-28 07:57] LABS: HEMATOCRIT 29.3 % (42.0-52.0); HEMOGLOBIN 9.6 g/dL (14.0-18.0); MEAN CORPUSCULAR HEMOGLOBIN 30.8 pg (28.0-32.0); MEAN CORPUSCULAR HGB CONC 32.6 g/dL (31.0-37.0); MEAN CORPUSCULAR VOLUME 94.5 fL (80.0-94.0); PLATELET 112 x1000/uL (130-400); RED CELL DISTRIBUTION WIDTH 16.2 % (11.6-14.6); WHITE BLOOD COUNT 6.6 x1000/uL (4.5-11.0)
[2024-02-28] MEDS: HYDRALAZINE 20MG/ML VIAL IV PRN (12:28)
[2024-02-29] VITALS (20 sets, daily range): BP systolic 121–165; BP diastolic 72–100; PULSE 76–106; RESP 12–20; TEMP 97–98.3
[2024-02-29 13:07] LABS: BASOPHILS % 0.3 % (0.0-2.0); DIFFERENTIAL COMMENT 0; EOSINOPHILS % 8.2 % (0.0-5.0); HEMATOCRIT. 34.8 % (42.0-52.0); HEMOGLOBIN. 10.9 g/dL (14.0-18.0); LYMPHOCYTES % 22.2 % (20.0-50.0); MEAN CORPUSCULAR HEMOGLOBIN 31.4 pg (28.0-32.0); MEAN CORPUSCULAR HGB CONC 31.2 g/dL (31.0-37.0); MEAN CORPUSCULAR VOLUME 100.4 fL (80.0-94.0); MEAN PLATELET VOLUME 10.5 fl (7.4-10.4); MONOCYTES % 6.4 % (2.0-8.0); NEUTROPHILS % 62.9 % (40.0-76.0); PLATELET 119 x1000/uL (130-400); RED BLOOD CELL COUNT 3.47 mill/uL (4.7-6.1); RED CELL DISTRIBUTION WIDTH 16.7 % (11.6-14.6); WHITE BLOOD COUNT 7.7 x1000/uL (4.5-11.0)
[2024-02-29 13:34] LABS: CALCIUM 8.5 mg/dL (8.7-10.4); CARBON DIOXIDE 20 mEq/L (21-32); CHLORIDE 109 mEq/L (98-107); CREATININE 0.6 mg/dL (0.6-1.3); GLUCOSE 106 mg/dL (70-105); PHOSPHORUS 1.8 mg/dL (2.5-4.9); POTASSIUM 4.8 mEq/L (3.5-5.1); SODIUM 137 mEq/L (136-145); UREA NITROGEN BLOOD 15 mg/dL (9-23)
[2024-02-29] MEDS: IPRATROPIUM/ALBUTEROL 0.5-3(2.5)MG/3ML NEB HHN PRN (16:31)
[2024-02-29] MEDS: IPRATROPIUM/ALBUTEROL 0.5-3(2.5)MG/3ML NEB HHN SCH (20:26)
[2024-03-01] VITALS (18 sets, daily range): BP systolic 109–151; BP diastolic 70–90; PULSE 79–123; RESP 12–23; TEMP 96.4–98
[2024-03-01 06:49] LABS: BASOPHILS % 0.8 % (0.0-2.0); EOSINOPHILS % 8.5 % (0.0-5.0); HEMOGLOBIN. 11.8 g/dL (14.0-18.0); LYMPHOCYTES % 22.8 % (20.0-50.0); MEAN CORPUSCULAR HEMOGLOBIN 30.5 pg (28.0-32.0); MEAN CORPUSCULAR HGB CONC 31.8 g/dL (31.0-37.0); MEAN CORPUSCULAR VOLUME 95.8 fL (80.0-94.0); MEAN PLATELET VOLUME 10.9 fl (7.4-10.4); NEUTROPHILS % 59.9 % (40.0-76.0); PLATELET 120 x1000/uL (130-400); RED BLOOD CELL COUNT 3.86 mill/uL (4.7-6.1); RED CELL DISTRIBUTION WIDTH 16.1 % (11.6-14.6); WHITE BLOOD COUNT 6.8 x1000/uL (4.5-11.0)
[2024-03-01 07:27] LABS: CALCIUM 8.7 mg/dL (8.7-10.4); CARBON DIOXIDE 21 mEq/L (21-32); CHLORIDE 109 mEq/L (98-107); CREATININE 0.6 mg/dL (0.6-1.3); GLUCOSE 112 mg/dL (70-105); PHOSPHORUS 1.7 mg/dL (2.5-4.9); POTASSIUM 4.4 mEq/L (3.5-5.1); SODIUM 139 mEq/L (136-145); UREA NITROGEN BLOOD 18 mg/dL (9-23)
[2024-03-01] MEDS: CEFTAZIDIME PENTAHYDRATE 2 G in DEXT 5% WATER 100 ML IV SCH (10:14)
[2024-03-01] MEDS: MAGNESIUM 2 G PREMIX 50 ML IV NR (18:19)
[2024-03-01] MEDS: SODIUM PHOSPHATE 15 MMOL in DEXT 5% WATER 245 ML IV NR (20:25)
[2024-03-02] VITALS (21 sets, daily range): BP systolic 107–169; BP diastolic 71–95; PULSE 84–115; RESP 11–16; TEMP 96.4–98.4
[2024-03-02 06:29] LABS: BASOPHILS % 0.6 % (0.0-2.0); EOSINOPHILS % 10.3 % (0.0-5.0); HEMATOCRIT. 33.3 % (42.0-52.0); HEMOGLOBIN. 10.3 g/dL (14.0-18.0); LYMPHOCYTES % 27.1 % (20.0-50.0); MEAN CORPUSCULAR HEMOGLOBIN 30.3 pg (28.0-32.0); MEAN CORPUSCULAR HGB CONC 31.1 g/dL (31.0-37.0); MEAN CORPUSCULAR VOLUME 97.6 fL (80.0-94.0); MEAN PLATELET VOLUME 11.7 fl (7.4-10.4); MONOCYTES % 9.3 % (2.0-8.0); NEUTROPHILS % 52.7 % (40.0-76.0); PLATELET 113 x1000/uL (130-400); RED BLOOD CELL COUNT 3.41 mill/uL (4.7-6.1); RED CELL DISTRIBUTION WIDTH 17.2 % (11.6-14.6); WHITE BLOOD COUNT 6.7 x1000/uL (4.5-11.0)
[2024-03-02 06:58] LABS: CALCIUM 8.4 mg/dL (8.7-10.4); CARBON DIOXIDE 22 mEq/L (21-32); CHLORIDE 108 mEq/L (98-107); CREATININE 0.6 mg/dL (0.6-1.3); GLUCOSE 103 mg/dL (70-105); POTASSIUM 4.6 mEq/L (3.5-5.1); SODIUM 137 mEq/L (136-145); UREA NITROGEN BLOOD 15 mg/dL (9-23)
[2024-03-03] VITALS (21 sets, daily range): BP systolic 111–148; BP diastolic 60–82; PULSE 78–124; RESP 10–26; TEMP 97.7–99.4
[2024-03-03 06:40] LABS: EOSINOPHILS % 10.3 % (0.0-5.0); HEMATOCRIT. 31.1 % (42.0-52.0); HEMOGLOBIN. 9.8 g/dL (14.0-18.0); LYMPHOCYTES % 27.9 % (20.0-50.0); MEAN CORPUSCULAR HEMOGLOBIN 29.9 pg (28.0-32.0); MEAN CORPUSCULAR HGB CONC 31.4 g/dL (31.0-37.0); MEAN CORPUSCULAR VOLUME 95.2 fL (80.0-94.0); MEAN PLATELET VOLUME 10.7 fl (7.4-10.4); MONOCYTES % 7.8 % (2.0-8.0); PLATELET 92 x1000/uL (130-400); RED BLOOD CELL COUNT 3.27 mill/uL (4.7-6.1); RED CELL DISTRIBUTION WIDTH 16.4 % (11.6-14.6); WHITE BLOOD COUNT 6.1 x1000/uL (4.5-11.0)
[2024-03-03 06:59] LABS: CALCIUM 8.7 mg/dL (8.7-10.4); CARBON DIOXIDE 23 mEq/L (21-32); CHLORIDE 110 mEq/L (98-107); CREATININE 0.6 mg/dL (0.6-1.3); GLUCOSE 119 mg/dL (70-105); POTASSIUM 4.3 mEq/L (3.5-5.1); SODIUM 139 mEq/L (136-145); UREA NITROGEN BLOOD 21 mg/dL (9-23)
[2024-03-04] VITALS (21 sets, daily range): BP systolic 99–183; BP diastolic 65–101; PULSE 65–92; RESP 12–14; TEMP 97.6–98.7
[2024-03-04 07:36] LABS: CALCIUM 8.5 mg/dL (8.7-10.4); CARBON DIOXIDE 21 mEq/L (21-32); CHLORIDE 111 mEq/L (98-107); CREATININE 0.7 mg/dL (0.6-1.3); GLUCOSE 109 mg/dL (70-105); POTASSIUM 4.3 mEq/L (3.5-5.1); SODIUM 139 mEq/L (136-145); UREA NITROGEN BLOOD 16 mg/dL (9-23)
[2024-03-04 07:37] LABS: EOSINOPHILS % 10.1 % (0.0-5.0); HEMATOCRIT. 30.6 % (42.0-52.0); HEMOGLOBIN. 9.9 g/dL (14.0-18.0); LYMPHOCYTES % 32.8 % (20.0-50.0); MEAN CORPUSCULAR HEMOGLOBIN 30.7 pg (28.0-32.0); MEAN CORPUSCULAR HGB CONC 32.3 g/dL (31.0-37.0); MEAN CORPUSCULAR VOLUME 95.2 fL (80.0-94.0); MONOCYTES % 8.1 % (2.0-8.0); RED BLOOD CELL COUNT 3.22 mill/uL (4.7-6.1); RED CELL DISTRIBUTION WIDTH 16.9 % (11.6-14.6); WHITE BLOOD COUNT 7.1 x1000/uL (4.5-11.0)
[2024-03-04 08:44] LABS: DIFFERENTIAL COMMENT 1
[2024-03-04] MEDS: PREZCOBIX PO SCH (08:56)
[2024-03-04 16:27] LABS: MEAN PLATELET VOLUME 12.6 fl (7.4-10.4); PLATELET 96 x1000/uL (130-400)
[2024-03-05] VITALS (21 sets, daily range): BP systolic 130–173; BP diastolic 78–120; PULSE 61–98; RESP 0–16; TEMP 97.3–97.7
[2024-03-05 08:34] LABS: BASOPHILS % 1.1 % (0.0-2.0); HEMATOCRIT. 30.1 % (42.0-52.0); HEMOGLOBIN. 9.6 g/dL (14.0-18.0); LYMPHOCYTES % 29.8 % (20.0-50.0); MEAN CORPUSCULAR HEMOGLOBIN 30.2 pg (28.0-32.0); MEAN CORPUSCULAR HGB CONC 31.8 g/dL (31.0-37.0); MEAN CORPUSCULAR VOLUME 94.9 fL (80.0-94.0); MEAN PLATELET VOLUME 11.6 fl (7.4-10.4); MONOCYTES % 9.1 % (2.0-8.0); PLATELET 98 x1000/uL (130-400); RED BLOOD CELL COUNT 3.17 mill/uL (4.7-6.1); RED CELL DISTRIBUTION WIDTH 16.2 % (11.6-14.6); WHITE BLOOD COUNT 5.9 x1000/uL (4.5-11.0)
[2024-03-05 08:50] LABS: CALCIUM 8.3 mg/dL (8.7-10.4); CARBON DIOXIDE 20 mEq/L (21-32); CHLORIDE 112 mEq/L (98-107); CREATININE 0.6 mg/dL (0.6-1.3); GLUCOSE 95 mg/dL (70-105); SODIUM 139 mEq/L (136-145); UREA NITROGEN BLOOD 18 mg/dL (9-23)
[2024-03-05] MEDS ORDERED: DOCUSATE SODIUM 100MG CAPSULE GT PRN (16:45)
[2024-03-05] MEDS ORDERED: DOCUSATE SODIUM SUGAR FREE 100MG/10ML UDC NG PRN (16:45)
[2024-03-06] VITALS (20 sets, daily range): BP systolic 101–184; BP diastolic 65–102; PULSE 63–96; RESP 12–29; TEMP 97.2–97.9
[2024-03-06] MEDS ORDERED: LOSA50TA41 PO (13:17)
[2024-03-06] MEDS: LOSARTAN 50 MG TABLET PO SCH (20:21)
[2024-03-07] VITALS (26 sets, daily range): BP systolic 111–144; BP diastolic 62–82; PULSE 62–89; RESP 11–15; TEMP 97.2–98
[2024-03-07] MEDS: AMLODIPINE 10MG TABLET PO SCH (10:49)
[2024-03-08] VITALS (27 sets, daily range): BP systolic 107–174; BP diastolic 64–114; PULSE 64–121; RESP 12–20; TEMP 97.2–98
[2024-03-08] MEDS: LIDOCAINE HCL 1% 10 MG/ML 10ML VIAL ONE (17:57)
[2024-03-09] VITALS (22 sets, daily range): BP systolic 117–144; BP diastolic 70–103; PULSE 64–104; RESP 12–22; TEMP 97–97.7
[2024-03-10] VITALS (21 sets, daily range): BP systolic 100–164; BP diastolic 57–89; PULSE 67–118; RESP 7–22; TEMP 97–98.8
[2024-03-10 11:35] LABS: CALCIUM 8.3 mg/dL (8.7-10.4); CARBON DIOXIDE 22 mEq/L (21-32); CHLORIDE 108 mEq/L (98-107); CREATININE 0.6 mg/dL (0.6-1.3); GLUCOSE 144 mg/dL (70-105); PHOSPHORUS 2.2 mg/dL (2.5-4.9); POTASSIUM 4.1 mEq/L (3.5-5.1); SODIUM 134 mEq/L (136-145); UREA NITROGEN BLOOD 16 mg/dL (9-23)
[2024-03-10 11:43] LABS: BASOPHILS % 0.5 % (0.0-2.0); EOSINOPHILS % 4.8 % (0.0-5.0); HEMATOCRIT. 29.4 % (42.0-52.0); HEMOGLOBIN. 9.6 g/dL (14.0-18.0); LYMPHOCYTES % 24.2 % (20.0-50.0); MEAN CORPUSCULAR HEMOGLOBIN 30.1 pg (28.0-32.0); MEAN CORPUSCULAR HGB CONC 32.5 g/dL (31.0-37.0); MEAN CORPUSCULAR VOLUME 92.7 fL (80.0-94.0); MEAN PLATELET VOLUME 11.7 fl (7.4-10.4); MONOCYTES % 8.4 % (2.0-8.0); NEUTROPHILS % 62.1 % (40.0-76.0); PLATELET 171 x1000/uL (130-400); RED BLOOD CELL COUNT 3.17 mill/uL (4.7-6.1); RED CELL DISTRIBUTION WIDTH 16.6 % (11.6-14.6)
[2024-03-10] MEDS: MAGNESIUM 1 G PREMIX 100 ML IV NR (17:58)
[2024-03-10] MEDS: SODIUM PHOSPHATE 20 MMOL in DEXT 5% WATER 243.3333 ML IV NR (18:41)
[2024-03-11] VITALS (24 sets, daily range): BP systolic 101–146; BP diastolic 51–105; PULSE 72–117; RESP 12–20; TEMP 97.1–99.3
[2024-03-11] MEDS: PREZCOBIX PO SCH (08:46)
[2024-03-12] VITALS (24 sets, daily range): BP systolic 101–151; BP diastolic 50–81; PULSE 71–93; RESP 12–18; TEMP 97–98.3
[2024-03-12] MEDS: IPRATROPIUM/ALBUTEROL 0.5-3(2.5)MG/3ML NEB HHN SCH (14:06)
[2024-03-13] VITALS (21 sets, daily range): BP systolic 107–142; BP diastolic 50–93; PULSE 65–89; RESP 12–20; TEMP 97.3–98.5
[2024-03-13 07:07] LABS: CHLORIDE 107 mEq/L (98-107); POTASSIUM 4.4 mEq/L (3.5-5.1); SODIUM 137 mEq/L (136-145)
[2024-03-13 07:08] LABS: CARBON DIOXIDE 24 mEq/L (21-32)
[2024-03-13 07:09] LABS: CALCIUM 8.5 mg/dL (8.7-10.4)
[2024-03-13 07:13] LABS: CREATININE 0.7 mg/dL (0.6-1.3); GLUCOSE 118 mg/dL (70-105)
[2024-03-13 07:14] LABS: UREA NITROGEN BLOOD 26 mg/dL (9-23)
[2024-03-13 07:15] LABS: ALANINE AMINOTRANSFERASE < 7 IU/L (10-49)
[2024-03-13 07:16] LABS: BILIRUBIN TOTAL 0.3 mg/dL (0.1-1.0); PHOSPHORUS 2.1 mg/dL (2.5-4.9)
[2024-03-13 07:17] LABS: ASPARTATE AMINOTRANSFERASE < 8 IU/L (<34)
[2024-03-13 07:19] LABS: HEMATOCRIT 26.1 % (42.0-52.0); HEMOGLOBIN 8.7 g/dL (14.0-18.0); MEAN CORPUSCULAR HEMOGLOBIN 31.3 pg (28.0-32.0); MEAN CORPUSCULAR HGB CONC 33.2 g/dL (31.0-37.0); MEAN CORPUSCULAR VOLUME 94.3 fL (80.0-94.0); PLATELET 180 x1000/uL (130-400); RED BLOOD CELL COUNT 2.77 mill/uL (4.7-6.1); RED CELL DISTRIBUTION WIDTH 16.5 % (11.6-14.6); WHITE BLOOD COUNT 6.9 x1000/uL (4.5-11.0)
[2024-03-13] MEDS: SODIUM PHOSPHATE 10 MMOL in DEXT 5% WATER 246.6667 ML IV NR (11:35)
[2024-03-14] VITALS (22 sets, daily range): BP systolic 118–173; BP diastolic 67–110; PULSE 65–94; RESP 12–15; TEMP 97.9–98.4
[2024-03-14 06:15] LABS: PHOSPHORUS 2.6 mg/dL (2.5-4.9)
[2024-03-15] VITALS (21 sets, daily range): BP systolic 89–173; BP diastolic 51–97; PULSE 64–114; RESP 12–22; TEMP 97.6–99
[2024-03-15] MEDS: APIXABAN 5 MG TABLET PO SCH (02:09)
[2024-03-16] VITALS (20 sets, daily range): BP systolic 99–152; BP diastolic 56–75; PULSE 70–110; RESP 10–22; TEMP 97.1–97.9; O2SAT 97
== END 2024-03-16 18:25 | disposition home health service (06) | DRG 974 ==
LOC: ER 16:52 → 5EST 18:29 → EDBEDREQSVC 18:33 → EDBEDREQ 18:33 → EDBEDREQTM 18:33
PROVIDERS: ADMIT Internal Medicine; ATTEND Internal Medicine
PROC: 5A1955Z Respiratory Ventilation, Greater than 96 Consecutive Hours (ICD-10-PCS; principal; 2024-02-21)
PROC: 0BH17EZ Insertion of Endotracheal Airway into Trachea, Via Natural or Artificial Opening (ICD-10-PCS; 2024-02-21)
PROC: 05HY33Z Insertion of Infusion Device into Upper Vein, Percutaneous Approach (ICD-10-PCS; 2024-02-23)
PROC: B54MZZA Ultrasonography of Right Upper Extremity Veins, Guidance (ICD-10-PCS; 2024-02-23)
DX: A41.9 Sepsis, unspecified organism (principal); G82.50 Quadriplegia, unspecified; B20 Human immunodeficiency virus [HIV] disease; L89.154 Pressure ulcer of sacral region, stage 4; J69.0 Pneumonitis due to inhalation of food and vomit; G92.8 Other toxic encephalopathy; J96.21 Acute and chronic respiratory failure with hypoxia; E87.1 Hypo-osmolality and hyponatremia; N17.9 Acute kidney failure, unspecified; Z99.11 Dependence on respirator [ventilator] status; Z16.12 Extended spectrum beta lactamase (ESBL) resistance; J15.0 Pneumonia due to Klebsiella pneumoniae; J15.69 Pneumonia due to other Gram-negative bacteria; I95.9 Hypotension, unspecified; E87.5 Hyperkalemia; N18.9 Chronic kidney disease, unspecified; D50.9 Iron deficiency anemia, unspecified; E83.42 Hypomagnesemia; B35.1 Tinea unguium; E86.1 Hypovolemia; E11.22 Type 2 diabetes mellitus with diabetic chronic kidney disease; M79.674 Pain in right toe(s); M79.675 Pain in left toe(s); Z20.822 Contact with and (suspected) exposure to COVID-19; I12.9 Hypertensive chronic kidney disease with stage 1 through stage 4 chronic kidney disease, or unspecified chronic kidney disease; R65.20 Severe sepsis without septic shock; D63.8 Anemia in other chronic diseases classified elsewhere; Z79.899 Other long term (current) drug therapy; Z74.01 Bed confinement status; Z79.4 Long term (current) use of insulin; Z86.718 Personal history of other venous thrombosis and embolism; Z93.0 Tracheostomy status
CPT/HCPCS: 36415; 36573; 36600; 71045; 76604; 80048; 80053; 80061; 81003; 82040; 82375; 82570; 82607; 82728; 82746; 82805; 82962; 83036; 83540; 83550; 83605; 83735; 83880; 83930; 83935; 84100; 84132; 84134; 84145; 84295; 84300; 84439; 84443; 84484; 85025; 85027; 86359; 86360; 86705; 87070; 87077; 87106; 87186; 87340; 87426; 87804; 93005; 93306; 94002; 94003; 94640; 99291; C1725; C9113; J0360; J0713; J1815; J1956; J2185; J2543; J3370; J3475; J3490; J7030; J7040; J7042; J7060; J7131; J7626

== ENCOUNTER 2024-05-04 21:11 | Emergency (ER) | payer MEDICARE, OTHER, MEDICAID ==
[~2024-05-04] VITALS: Ht 182.9 cm; Wt 75.0 kg
[~2024-05-04 21:11] MED LIST: AMLO10TA80 PO; APIX5TAB PO; DARU1TAB PO; GLYC2TAB21 PO; LOSA50TA41 PO
[2024-05-04 21:18] VITALS: O2SAT 100
[2024-05-04 21:20] VITALS: PULSE 120; RESP 19
[2024-05-04] MEDS: VANCOMYCIN 1G PREMIX 200 ML IV ONE (21:39)
[2024-05-04 21:57] LABS: BASOPHILS % 0.8 % (0.0-2.0); EOSINOPHILS % 10.6 % (0.0-5.0); HEMATOCRIT. 33.9 % (42.0-52.0); LYMPHOCYTES % 27.7 % (20.0-50.0); MEAN CORPUSCULAR HEMOGLOBIN 30.2 pg (28.0-32.0); MEAN CORPUSCULAR HGB CONC 32.5 g/dL (31.0-37.0); MEAN CORPUSCULAR VOLUME 92.9 fL (80.0-94.0); MEAN PLATELET VOLUME 12.5 fl (7.4-10.4); MONOCYTES % 7.6 % (2.0-8.0); NEUTROPHILS % 53.3 % (40.0-76.0); PLATELET 143 x1000/uL (130-400); RED BLOOD CELL COUNT 3.65 mill/uL (4.7-6.1); RED CELL DISTRIBUTION WIDTH 18.4 % (11.6-14.6); WHITE BLOOD COUNT 10.1 x1000/uL (4.5-11.0)
[2024-05-04 22:08] LABS: CHLORIDE 108 mEq/L (98-107); POTASSIUM 6.1 mEq/L (3.5-5.1); SODIUM 141 mEq/L (136-145)
[2024-05-04 22:09] LABS: CALCIUM 9.5 mg/dL (8.7-10.4); CARBON DIOXIDE 28 mEq/L (21-32)
[2024-05-04 22:14] LABS: GLUCOSE 160 mg/dL (70-105); UREA NITROGEN BLOOD 80 mg/dL (9-23)
[2024-05-04 22:15] LABS: TROPONIN I HIGH SENSITIVITY 18 ng/L (3.0-53)
[2024-05-04] MEDS ORDERED: IPRATROPIUM/ALBUTEROL 0.5-3(2.5)MG/3ML NEB HHN ONE (23:00)
[2024-05-04 23:48] LABS: TROPONIN I HIGH SENSITIVITY 17 ng/L (3.0-53)
[2024-05-04] MEDS: MEROPENEM 1G/100ML 100 ML IV ONE (23:49)
[2024-05-04 23:56] LABS: PROTHROMBIN TIME 11.4 sec (9.6-11.0)
[2024-05-05] MEDS ORDERED: AZIT250T12 MT (00:43)
[2024-05-05] MEDS ORDERED: ALBU2.5V13 NEB (00:43)
[2024-05-05 00:44] VITALS: PULSE 77; RESP 16
[2024-05-05] MEDS: IPRATROPIUM/ALBUTEROL 0.5-3(2.5)MG/3ML NEB HHN NR (00:44)
[2024-05-05] MEDS: SODIUM CHLORIDE 0.9% 1000ML BAG (SEPSIS BOLUS) IV ONE (00:44)
[2024-05-05 01:45] VITALS: BP 95/55; PULSE 77; RESP 16; TEMP 98.9
== END 2024-05-05 01:58 | disposition home or self-care (01) ==
LOC: ER 21:11
DX: J96.10 Chronic respiratory failure, unspecified whether with hypoxia or hypercapnia (principal); J44.1 Chronic obstructive pulmonary disease with (acute) exacerbation; E86.0 Dehydration; J18.8 Other pneumonia, unspecified organism; E11.9 Type 2 diabetes mellitus without complications; I10 Essential (primary) hypertension
CPT/HCPCS: 99285; 96365; 71045; 96366; 96375; 80048; 83605; 85025; 85610; 86850; 86900; 86901; 87040; 84484; 87077; 36415; 84145; 93005; J2185; J3370; J7030; 94002

== ENCOUNTER 2025-06-05 18:36 | Emergency (ER) | payer OTHER ==
[~2025-06-05] VITALS: Ht 172.7 cm; Wt 79.0 kg
[~2025-06-05 18:36] MED LIST changes: +ALBU2.5V13 NEB; +AZIT250T12 MT; +BUME1TAB8 PO; +DARU1TAB MT; +DOLU50TA MT; +METO25TA6 MT; +METO5TAB7 MT; +SULF1TAB48 MT
[2025-06-05 18:41] VITALS: O2SAT 99
[2025-06-05 18:55] VITALS: PULSE 111; RESP 14; O2SAT 98
[2025-06-05 19:03] VITALS: TEMP 37.5
[2025-06-05 19:35] VITALS: PULSE 107; RESP 14; O2SAT 99
[2025-06-05 20:32] VITALS: BP 104/69
[2025-06-05 22:30] VITALS: PULSE 14; RESP 14; O2SAT 98
[2025-06-05] MEDS ORDERED: IPRATROPIUM/ALBUTEROL 0.5-3(2.5)MG/3ML NEB ONE (23:13)
[2025-06-05] MEDS ORDERED: IPRATROPIUM/ALBUTEROL 0.5-3(2.5)MG/3ML NEB HHN ONE (23:15)
== END 2025-06-06 | disposition home or self-care (01) ==
LOC: ER 18:36
DX: Z43.1 Encounter for attention to gastrostomy (principal); E11.9 Type 2 diabetes mellitus without complications; I10 Essential (primary) hypertension; Z79.01 Long term (current) use of anticoagulants; Z79.899 Other long term (current) drug therapy; Z99.2 Dependence on renal dialysis
CPT/HCPCS: 31720; 94003; 94070; 94664; 99285; A4606